=== PATIENT | male | born 1965 | race Caucasian/White ===

== ENCOUNTER 2017-05-21 09:19 | Emergency (ER) | payer BC ==
[2017-05-21] MEDS ORDERED: SODIUM CHLORIDE 0.9% 1000ML 1,000 ML IVS ONE (09:41)
[2017-05-21] MEDS ORDERED: SUMAtriptan SUCCINATE INJ 6 MG/0.5 ML VIAL SUBCU ONE (09:41)
--- NOTE | 2017-05-21 09:44 | ED.PDOC ---
History of Present Illness - General Chief Complaint: Headache Stated Complaint: Headache x 3 days Time Seen by Provider: 05/21/17 09:30 Source: patient, RN notes reviewed, Vital Signs reviewed Exam Limitations: no limitations - History of Present Illness Initial Comments: Patient comes in with c/o bilateral, temporal ASCENCIO X 3 days. He describes it as feeling something rushing over his head, "like an infection ASCENCIO". + Throbbing.No relief with Ibuprofen and BC Powder. + nausea. No photophobia. No visual changes. No numbness, tingling or weakness. Timing/Duration: increasing - pver past 3 days. Currently 02/12 Quality: moderate, constant, throbbing Head Injury Location: temporal Recent Head Trauma: occasional headaches Improving Factors: nothing Worsening Factors: nothing Associated Symptoms: nausea/vomiting Allergies/Adverse Reactions: Allergies NO KNOWN ALLERGY Allergy (Verified 05/21/17 09:35) Home Medications: Ambulatory Orders Amphetamine-Dextroamphetamine [Adderall] 1 tab PO 0800,1200 05/21/17 Bp Med 1 each PO DAILY 05/21/17 SUMAtriptan SUCCINATE [Imitrex] 50 mg PO DAILY PRN #9 tab 05/21/17 Tamsulosin [Flomax] 0.4 mg PO DAILY #30 cap 05/21/17 Water Pill 1 each PO DAILY 05/21/17 levoFLOXacin [Levaquin] 500 mg PO DAILY #13 tab 05/21/17 Review of Systems - Review of Systems Constitutional: States: no symptoms reported. Denies: chills, diaphoresis, fever, malaise, weakness EENTM: States: no symptoms reported. Denies: blurred vision, double vision Respiratory: States: no symptoms reported. Denies: short of breath Cardiology: States: no symptoms reported. Denies: chest pain Gastrointestinal/Abdominal: States: nausea. Denies: abdominal pain, diarrhea, vomiting Genitourinary: States: other - Reports kidney stones but ansymptomatic Skin: States: no symptoms reported Neurological: States: headache. Denies: numbness, paresthesia, tingling, weakness All other Systems: No Change from Baseline Past Medical History (General) - Patient Medical History Hx Stroke: No Hx Congestive Heart Failure: No Hx Hypertension: Yes Hx Diabetes: No Hx Renal Disease: - Pt reports he has a hx of kidney stones Surgical History: other - Vaccination History Hx Influenza Vaccination: No Hx Pneumococcal Vaccination: No - Social History Hx Tobacco Use: No Hx Alcohol Use: No Family Medical History - Family History Father Living Status: Still Living Hx Family Hypertension: Yes Hx Cardiac Disease: Yes - Hx RI Physical Exam - Physical Exam General Appearance: Alert, Comfortable, No apparent distress, Obese, Well Developed, Well Groomed, Well Hydrated, Well Nourished Eyes, Ears, Nose, Throat Exam: PERRL/EOMI, normal ENT inspection, pharynx normal Neck: non-tender, supple, normal inspection Cardiovascular/Chest: regular rate, rhythm, no edema, no gallop, no JVD, no murmur Respiratory: lungs clear, normal breath sounds, no respiratory distress, no accessory muscle use Gastrointestinal/Abdominal: normal bowel sounds, soft, no organomegaly, tenderness - mild, generalized Extremity: normal inspection Mental Status: alert, 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 Now 10/1505/21/17 10:35 Potassium is slightly low @ 3.0 and Creatinine is up @ 1.40. Getting IV fluids. Would prefer a PO dose of potassium instead of the 2-4 hours it would take to give the IV dose. Will give KCL 40meq PO. 05/21/17 10:41 + UTI w/ known kidney stones but does report pain in his perineum with sitting. Most likely Prostatitis. Will start Levaquin and Flomax and have him follow up with urologist. - Results/Orders Results/Orders: Laboratory Tests 05/21/17 05/21/17 05/21/17 10:06 10:06 10:06 WBC 11.0 H RBC 5.06 Hgb 15.6 Hct 46.9 MCV 92.7 MCH 30.9 MCHC 33.3 RDW 13.8 Plt Count 177 MPV 8.1 Absolute Neuts (auto) 10.00 H Absolute Lymphs (auto) 0.50 L Absolute Monos (auto) 0.40 Absolute Eos (auto) 0.00 Absolute Basos (auto) 0.00 Neutrophils % 90.7 H Lymphocytes % 4.9 L Monocytes % 4.0 Eosinophils % 0.2 L Basophils % 0.2 Sodium 134 L Potassium 3.0 L Chloride 97 L Carbon Dioxide 29 Anion Gap 11.0 L BUN 17 Creatinine 1.40 H BUN/Creatinine Ratio 12.1 Random Glucose 119 H Serum Osmolality 270.9 L Calcium 9.1 Total Bilirubin 1.6 H AST 16 ALT 19 Alkaline Phosphatase 71 Serum Total Protein 8.0 Albumin 3.8 Globulin 4.2 H Albumin/Globulin Ratio 0.9 L Urine Color Yellow Urine Appearance Cloudy Urine pH 5.5 Ur Specific [place] 1.020 Urine Protein 30 Urine Glucose (UA) Negative Urine Ketones Negative Urine Blood Large H Urine Nitrite Positive H Urine Bilirubin Negative Urine Urobilinogen 0.2 Ur Leukocyte Esterase Large H Urine RBC 20-30 H Urine WBC >50 H Ur Epithelial Cells 3-5 Urine Bacteria 3+ H Departure - Departure Clinical Impression: Dehydration, Prostatitis, acute, Kidney stones, Hypokalemia due to loss of potassium Migraine Qualifiers: Migraine type: without aura Status migrainosus presence: without status migrainosus Intractability: not intractable Qualified Code(s): G43.009 - Migraine without aura, not intractable, without status migrainosus Time of Disposition: 10:53 Disposition: Discharge to Home or Self Care Condition: Good Departure Forms: ED Discharge - Pt. Copy, Patient Portal Self Enrollment Instructions: DI for Migraine, Prostatitis, DI for Hypokalemia Diet: resume usual diet Activity: increase activity as tolerated Referrals: Leif Guillory MD [Primary Care Provider] - 1-2 Weeks Prescriptions: levoFLOXacin [Levaquin] 500 mg PO DAILY #13 tab SUMAtriptan SUCCINATE [Imitrex] 50 mg PO DAILY PRN #9 tab PRN Reason: Headache/Migraine Pain Tamsulosin [Flomax] 0.4 mg PO DAILY #30 cap Home Medications: Ambulatory Orders Amphetamine-Dextroamphetamine [Adderall] 1 tab PO 0800,1200 05/21/17 Bp Med 1 each PO DAILY 05/21/17 SUMAtriptan SUCCINATE [Imitrex] 50 mg PO DAILY PRN #9 tab 05/21/17 Tamsulosin [Flomax] 0.4 mg PO DAILY #30 cap 05/21/17 Water Pill 1 each PO DAILY 05/21/17 levoFLOXacin [Levaquin] 500 mg PO DAILY #13 tab 05/21/17
[2017-05-21 09:47] VITALS: TEMP 99.9
[2017-05-21] MEDS ORDERED: POTASSIUM CHLORIDE 20 MEQ TAB PO ONE (10:35)
[2017-05-21] MEDS ORDERED: levoFLOXacin 500 MG TAB PO ONE (10:41)
[2017-05-21] MEDS ORDERED: TAMSULOSIN 0.4 MG CAP PO ONE (10:41)
[2017-05-21 11:15] VITALS: BP 145/96; O2SAT 96
== END 2017-05-21 11:35 | disposition home or self-care (01) ==
LOC: ER 09:19
DX: G43.009 Migraine without aura, not intractable, without status migrainosus (principal); N41.9 Inflammatory disease of prostate, unspecified; E87.6 Hypokalemia; E86.0 Dehydration; I10 Essential (primary) hypertension; Z87.442 Personal history of urinary calculi
CPT/HCPCS: 36415; 80053; 81001; 85025; 87086; J3030; J7030